=== PATIENT | female | born 1980 | race Caucasian/White ===

== ENCOUNTER → 2022-02-26 | Outpatient (CLI) | payer BC | LOC: VAS 10:15 | DX: M79.661 Pain in right lower leg (principal) ==

== ENCOUNTER → 2024-05-24 | Outpatient (CLI) | payer BC ==
[2024-05-24 12:32] LABS: CALCIUM 9.8 mg/dL (8.3-10.5)
[2024-05-24 12:38] LABS: MAGNESIUM 2.25 mg/dL (1.60-2.60)
== END ==
LOC: LAB 12:08
PROVIDERS: Internal Medicine
DX: R00.2 Palpitations (principal)